=== PATIENT | male | born 1945 | race Caucasian/White ===

== ENCOUNTER 2022-02-12 12:03 | Inpatient (IN) | payer MEDICARE ==
[~2022-02-12] VITALS: Ht 188 cm; Wt 73.0 kg
[2022-02-12] VITALS (12 sets, daily range): BP systolic 133–156; BP diastolic 78–92
[2022-02-12 14:21] LABS: HEMOGLOBIN 14.2 g/dl (14.0-18.0); IMMATURE GRANULOCYTES 0.1 % (0.0-5.0); MEAN CELL VOLUME 95.7 fL CALC (80.0-100.0); MEAN CORPUSCULAR HGB 30.9 pG CALC (26.0-32.0); MEAN CORPUSCULAR HGB CONC 32.3 g/dL CAL (32.0-36.0); NEUT# 13.61 thou/uL (1.82-7.42); RED BLOOD COUNT 4.6 mill/uL (4.70-6.10); RED CELL DISTRI WIDTH 14.2 % (11.5-15.5)
[2022-02-12 14:39] LABS: ALBUMIN 4.4 g/dL (3.2-5.0); ALKALINE PHOSPHATASE 67 u/l (38-126); ANION GAP 12 (6-22 (CALC)); BILIRUBIN, TOTAL 0.7 mg/dL (0.0-1.4); BUN 18 mg/dL (8-23); BUN/CREATININE RATIO 23 (12-20 (CALC)); CARBON DIOXIDE 30 mmol/l (22-30); CHLORIDE 96 mmol/l (95-108); CREATININE 0.8 mg/dL (0.7-1.3); GFR > 60 ML/MIN (>=60 (CALC)); GFR FOR AFR.AMER. > 60 ML/MIN (>=60 (CALC)); LIPASE 48 u/l (23-300); MAGNESIUM 1.9 mg/dL (1.6-2.3); POTASSIUM 3.8 mmol/l (3.5-5.1); SGOT/AST 25 u/l (19-48); SODIUM 134 mmol/l (137-146); TOTAL PROTEIN 7.6 g/dL (6.3-8.2)
[2022-02-12 14:41] LABS: PROTHROMBIN TIME 10.9 SECONDS (9.0-12.5)
[2022-02-12] MEDS ORDERED: NORVASC5 M1 PO (17:04)
[2022-02-12] MEDS ORDERED: ARICEPT PO (17:05)
[2022-02-12] MEDS ORDERED: LAMICTAL200 M1 PO (17:05)
[2022-02-12] MEDS ORDERED: LOSARTAN POTASS50 MG PO (17:06)
[2022-02-12] MEDS ORDERED: MONTELUKAST SOD10 MG PO (17:07)
[2022-02-12] MEDS ORDERED: HYDROCHLOROT25 MG PO (17:07)
[2022-02-12] MEDS ORDERED: MELOXICAM7.5 MG PO (17:07)
[2022-02-12] MEDS ORDERED: SEROQUEL100 MG PO (17:08)
[2022-02-12] MEDS ORDERED: SIMVASTATIN40 MG PO (17:09)
[2022-02-12 17:27] LABS: URINE BILIRUBIN - DIPSTICK NEGATIVE (NEGATIVE); URINE BLOOD DIPSTICK SMALL (NEGATIVE); URINE COLOR YELLOW; URINE GLUCOSE - DIPSTICK NEGATIVE (NEGATIVE); URINE KETONE NEGATIVE (NEGATIVE); URINE LEUK ESTERASE NEGATIVE (NEGATIVE); URINE PROTEIN - DIPSTICK NEGATIVE (NEG-TRACE); URINE SPECIFIC GRAVITY 1.025; URINE UROBILINOGEN - DIPSTICK 0.2 E.U./dL (0.2)
[2022-02-12 17:31] LABS: URINE NITRITE - DIPSTICK NEGATIVE (Negative)
[2022-02-12 17:45] LABS: URINE WBC 0-2 WBC/hpf (0-5)
[2022-02-13 04:38] VITALS: BP 138/75
[2022-02-13 05:43] LABS: IMMATURE GRANULOCYTES 0.1 % (0.0-5.0); MEAN CELL VOLUME 96.6 fL CALC (80.0-100.0); MEAN CORPUSCULAR HGB 31.9 pG CALC (26.0-32.0); NEUT# 8.8 thou/uL (1.82-7.42); RED BLOOD COUNT 3.83 mill/uL (4.70-6.10); RED CELL DISTRI WIDTH 14.2 % (11.5-15.5)
[2022-02-13 05:46] LABS: HEMOGLOBIN 12.2 g/dl (14.0-18.0)
[2022-02-13 05:50] LABS: ANION GAP 9 (6-22 (CALC)); BUN 15 mg/dL (8-23); BUN/CREATININE RATIO 22 (12-20 (CALC)); CARBON DIOXIDE 26 mmol/l (22-30); CHLORIDE 102 mmol/l (95-108); CREATININE 0.7 mg/dL (0.7-1.3); GFR > 60 ML/MIN (>=60 (CALC)); GFR FOR AFR.AMER. > 60 ML/MIN (>=60 (CALC)); POTASSIUM 4.1 mmol/l (3.5-5.1); SODIUM 133 mmol/l (137-146)
[2022-02-13 08:26] VITALS: BP 132/78
[2022-02-13 15:43] VITALS: BP 136/73
[2022-02-13 16:13] VITALS: BP 136/73
[2022-02-13 19:00] VITALS: BP 155/72
[2022-02-14 00:52] VITALS: BP 127/69
[2022-02-14 04:00] VITALS: BP 138/84
[2022-02-14 07:41] VITALS: BP 143/78
[2022-02-14 15:02] VITALS: BP 146/88
[2022-02-14 19:55] VITALS: BP 152/81
[2022-02-15 03:35] VITALS: BP 126/72
[2022-02-15 05:39] LABS: HEMATOCRIT 35.6 % (39.0-50.0); HEMOGLOBIN 11.7 g/dl (14.0-18.0); IMMATURE GRANULOCYTES 0.3 % (0.0-5.0); MEAN CELL VOLUME 95.2 fL CALC (80.0-100.0); MEAN CORPUSCULAR HGB 31.3 pG CALC (26.0-32.0); MEAN CORPUSCULAR HGB CONC 32.9 g/dL CAL (32.0-36.0); NEUT# 8.01 thou/uL (1.82-7.42); RED BLOOD COUNT 3.74 mill/uL (4.70-6.10); RED CELL DISTRI WIDTH 13.5 % (11.5-15.5)
[2022-02-15 06:06] LABS: ANION GAP 9 (6-22 (CALC)); BUN 7 mg/dL (8-23); BUN/CREATININE RATIO 11 (12-20 (CALC)); CARBON DIOXIDE 26 mmol/l (22-30); CHLORIDE 99 mmol/l (95-108); CREATININE 0.7 mg/dL (0.7-1.3); GFR > 60 ML/MIN (>=60 (CALC)); GFR FOR AFR.AMER. > 60 ML/MIN (>=60 (CALC)); POTASSIUM 3.4 mmol/l (3.5-5.1); SODIUM 130 mmol/l (137-146)
[2022-02-15 08:00] VITALS: BP 126/72
[2022-02-15 16:08] VITALS: BP 155/77
[2022-02-15 19:00] VITALS: BP 146/79
[2022-02-16 04:05] VITALS: BP 133/72
[2022-02-16 08:00] VITALS: BP 127/78
[2022-02-16 19:00] VITALS: BP 138/76
[2022-02-17 04:00] VITALS: BP 127/73
[2022-02-17 05:15] LABS: HEMOGLOBIN 12.1 g/dl (14.0-18.0); IMMATURE GRANULOCYTES 0.2 % (0.0-5.0); MEAN CELL VOLUME 94.1 fL CALC (80.0-100.0); MEAN CORPUSCULAR HGB 30.8 pG CALC (26.0-32.0); MEAN CORPUSCULAR HGB CONC 32.7 g/dL CAL (32.0-36.0); NEUT# 7.35 thou/uL (1.82-7.42); RED BLOOD COUNT 3.93 mill/uL (4.70-6.10); RED CELL DISTRI WIDTH 13.5 % (11.5-15.5)
[2022-02-17 06:03] LABS: ANION GAP 10 (6-22 (CALC)); BUN 3 mg/dL (8-23); BUN/CREATININE RATIO 5 (12-20 (CALC)); CARBON DIOXIDE 30 mmol/l (22-30); CHLORIDE 95 mmol/l (95-108); CREATININE 0.6 mg/dL (0.7-1.3); GFR > 60 ML/MIN (>=60 (CALC)); GFR FOR AFR.AMER. > 60 ML/MIN (>=60 (CALC)); POTASSIUM 3.1 mmol/l (3.5-5.1); SODIUM 132 mmol/l (137-146)
[2022-02-17 08:16] VITALS: BP 114/57
[2022-02-17 19:00] VITALS: BP 132/86
[2022-02-17 19:05] VITALS: BP 132/86
[2022-02-17 23:58] VITALS: BP 156/93
[2022-02-18 04:06] VITALS: BP 134/71
[2022-02-18 06:48] LABS: HEMATOCRIT 38.3 % (39.0-50.0); HEMOGLOBIN 12.5 g/dl (14.0-18.0); IMMATURE GRANULOCYTES 0.2 % (0.0-5.0); MEAN CELL VOLUME 93.9 fL CALC (80.0-100.0); MEAN CORPUSCULAR HGB 30.6 pG CALC (26.0-32.0); MEAN CORPUSCULAR HGB CONC 32.6 g/dL CAL (32.0-36.0); NEUT# 5.17 thou/uL (1.82-7.42); RED BLOOD COUNT 4.08 mill/uL (4.70-6.10); RED CELL DISTRI WIDTH 13.7 % (11.5-15.5)
[2022-02-18 07:36] VITALS: BP 130/80
[2022-02-18 07:36] LABS: ANION GAP 11 (6-22 (CALC)); BUN 5 mg/dL (8-23); BUN/CREATININE RATIO 8 (12-20 (CALC)); CARBON DIOXIDE 24 mmol/l (22-30); CHLORIDE 103 mmol/l (95-108); CREATININE 0.6 mg/dL (0.7-1.3); GFR > 60 ML/MIN (>=60 (CALC)); GFR FOR AFR.AMER. > 60 ML/MIN (>=60 (CALC)); POTASSIUM 3.5 mmol/l (3.5-5.1); SODIUM 135 mmol/l (137-146)
[2022-02-18 10:20] VITALS: BP 127/81
[2022-02-18 10:23] VITALS: BP 127/81
[2022-02-18 14:55] VITALS: BP 133/78
[2022-02-18 18:54] VITALS: BP 154/87
[2022-02-19 00:07] VITALS: BP 122/76
[2022-02-19 04:07] VITALS: BP 131/80
[2022-02-19 08:10] VITALS: BP 150/88
[2022-02-19 10:30] VITALS: BP 141/78
[2022-02-19] MEDS ORDERED: TRAMADOL HCL50 MG PO (12:56)
[2022-02-19] MEDS ORDERED: AMOX/K CLAV875 M1 PO (13:38)
[2022-02-19 14:16] VITALS: BP 142/78
== END 2022-02-19 15:11 | disposition home or self-care (01) | DRG 392 ==
LOC: ED 12:03 → ED-I 16:57 → ED 16:57 → MS2 17:03 → ED 18:20 → ED-I 18:20 → MS2 18:20
PROVIDERS: Internal Medicine; ADMIT Surgery; ATTEND Surgery
PROC: 3E1M48Z Irrigation of Peritoneal Cavity using Irrigating Substance, Percutaneous Endoscopic Approach (ICD-10-PCS; principal; 2022-02-12)
DX: K57.20 Diverticulitis of large intestine with perforation and abscess without bleeding (principal); K40.90 Unilateral inguinal hernia, without obstruction or gangrene, not specified as recurrent; I10 Essential (primary) hypertension; E87.6 Hypokalemia; E21.3 Hyperparathyroidism, unspecified; E78.00 Pure hypercholesterolemia, unspecified; G25.0 Essential tremor; Z20.822 Contact with and (suspected) exposure to COVID-19
CPT/HCPCS: J0131; Q9967